=== PATIENT | female | born 1955 | race Caucasian/White ===

== ENCOUNTER 2016-05-22 23:59 | Emergency (ER) | payer SELFPAY ==
[~2016-05-22] VITALS: Ht 157.5 cm; Wt 76.0 kg
[2016-05-23 00:02] VITALS: Ht 157.5 cm; Wt 76.0 kg
[2016-05-23] MEDS ORDERED: HYDROCODONE/APAP (5/325) TAB PO ONE (01:30)
[2016-05-23] MEDS ORDERED: IBUPROFEN 600 MG TAB PO ONE (01:30)
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
[2016-05-23] MEDS ORDERED: TRAM50TA2 PO (01:59)
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
== END 2016-05-23 02:56 | disposition home or self-care (01) ==
LOC: FTE 23:59
DX: S49.91XA Unspecified injury of right shoulder and upper arm, initial encounter (principal); S49.92XA Unspecified injury of left shoulder and upper arm, initial encounter; W03.XXXA Other fall on same level due to collision with another person, initial encounter; Y92.009 Unspecified place in unspecified non-institutional (private) residence as the place of occurrence of the external cause
CPT/HCPCS: 73030